=== PATIENT | female | born 1975 | race Caucasian/White ===

== ENCOUNTER 2021-12-19 11:54 | Observation (INO) ==
[2021-12-19] MEDS ORDERED: Morphine Sulfate 2 MG/ML SYRINGE IVP ONE (12:39)
[2021-12-19] MEDS ORDERED: Ondansetron 4 MG/2 ML VIAL IVP ONE (12:39)
[2021-12-19] MEDS ORDERED: 0.9 % Sodium Chloride 1,000 ML IVC ONE (13:04)
[2021-12-19 14:04] LABS: Basophils # 0.1 K/mcL (0.0-0.2); Basophils % 0.6 %; Eosinophils # 0.2 K/mcL (0.0-0.6); Eosinophils % 1.8 %; Hematocrit 42.4 % (35.3-44.9); Hemoglobin 14.2 g/dL (11.5-15.4); Immature Granulocytes % 0.2 % (0-4); Lymphocytes # 1.8 K/mcL (0.6-4.6); Lymphocytes % 20.3 %; Mean Corpuscular HGB Conc 33.5 g/dL (31.6-35.5); Mean Corpuscular Hemoglobin 29.5 pg (28.0-33.3); Mean Corpuscular Volume 88.1 fL (83.0-100.0); Mean Platelet Volume 9.7 fL (9.4-12.4); Monocytes # 0.6 K/mcL (0.0-1.3); Monocytes % 6.3 %; Neutrophils # 6.2 K/mcL (1.6-8.9); Platelet Count 338 K/mcL (140-400); Red Blood Count 4.81 M/mcL (3.82-4.97); Red Cell Distribution Width 12.3 % (11.5-14.5); Segmented Neutrophils % 70.8 %; White Blood Count 8.8 K/mcL (4.3-11.1)
[2021-12-19 14:19] LABS: Alanine Aminotransferase 11 Units/L (7-52); Albumin 4.4 g/dL (3.5-5.7); Albumin/Globulin Ratio 1.6 (1.1-2.2); Alkaline Phosphatase 61 Units/L (34-104); Aspartate Amino Transferase 11 Units/L (13-39); BUN/Creatinine Ratio 24 (6-26); Bilirubin,Direct 0.1 mg/dL (0.0-0.2); Bilirubin,Indirect 0.4 mg/dL (0.0-1.0); Bilirubin,Total 0.5 mg/dL (0.3-1.0); Blood Urea Nitrogen 27 mg/dL (6-20); Calcium 9.7 mg/dL (8.6-10.3); Carbon Dioxide 24 mEq/L (23-29); Chloride 103 mEq/L (98-107); Ethanol < 10 mg/dL (Less than 10); Globulin 2.8 g/dL (2.4-3.5); Glucose 96 mg/dL (70-105); Lipase 22 Units/L (11-82); Osmolality,Calculated 289 (280-300); Potassium 3.4 mEq/L (3.5-5.1); Sodium 137 mEq/L (136-145); Total Protein 7.2 g/dL (6.4-8.9); Troponin I < 0.03 ng/mL (< 0.04); eGFR For African Americans > 60 (> 60); eGFR For Non-African Americans 52 (> 60)
[2021-12-19] MEDS ORDERED: Ondansetron 4 MG/2 ML VIAL IVP PRN (15:56)
[2021-12-19 16:09] LABS: Amphetamine Screen,Urine Negative ng/mL (Cutoff=1000); Barbiturate Screen,Urine Negative ng/mL (Cutoff=200); Benzodiazepines Screen,Urine Negative ng/mL (Cutoff=200); Cannabinoid Screen,Urine Negative ng/mL (Cutoff = 50); Cocaine Screen,Urine Negative ng/mL (Cutoff= 300); Opiate Screen,Urine Positive ng/mL (Cutoff=300); Phencyclidine Screen,Urine Negative ng/mL (Cutoff=25)
[2021-12-19 16:32] LABS: Bilirubin,Urine Negative (Negative); Blood,Urine Negative (Negative); Clarity,Urine Clear (Clear); Color,Urine Light-Yellow (Yellow); Glucose,Urine (UA) Normal (Normal); Ketones,Urine Negative (Negative); Leukocyte Esterase,Urine Negative (Negative); Nitrite,Urine Negative (Negative); Protein,Urine Trace mg/dL (Neg-Trace); Specific Gravity,Urine 1.015 (1.010-1.025); Urobilinogen,Urine Normal (Normal)
[2021-12-19] MEDS ORDERED: Naloxone 0.4 MG/ML INJ IVP PRN (17:35)
[2021-12-19] MEDS ORDERED: Melatonin 3 MG TABLET PO PRN (17:35)
[2021-12-19] MEDS: 0.9 % Sodium Chloride 1,000 ML IVC SCH (20:47)
[2021-12-19] MEDS: Acetaminophen 325 MG TABLET PO PRN (22:29)
[2021-12-19] MEDS: Ondansetron 4 MG/2 ML VIAL IVP PRN (22:33)
[2021-12-20] MEDS ORDERED: Ketorolac 30 MG/ML VIAL IVP SCH
[2021-12-20 01:12] LABS: Basophils # 0.1 K/mcL (0.0-0.2); Basophils % 0.7 %; Eosinophils # 0.2 K/mcL (0.0-0.6); Eosinophils % 3.4 %; Immature Granulocytes % 0.1 % (0-4); Lymphocytes # 2.1 K/mcL (0.6-4.6); Mean Corpuscular HGB Conc 32.3 g/dL (31.6-35.5); Mean Corpuscular Hemoglobin 29.9 pg (28.0-33.3); Mean Corpuscular Volume 92.4 fL (83.0-100.0); Mean Platelet Volume 10.3 fL (9.4-12.4); Monocytes # 0.4 K/mcL (0.0-1.3); Neutrophils # 3.9 K/mcL (1.6-8.9); Platelet Count 196 K/mcL (140-400); Red Blood Count 4.22 M/mcL (3.82-4.97); Red Cell Distribution Width 12.7 % (11.5-14.5); Segmented Neutrophils % 57.8 %; White Blood Count 6.7 K/mcL (4.3-11.1)
[2021-12-20 01:22] LABS: Hemoglobin 12.6 g/dL (11.5-15.4)
[2021-12-20 03:34] LABS: Alanine Aminotransferase 10 Units/L (7-52); Albumin 3.6 g/dL (3.5-5.7); Albumin/Globulin Ratio 1.6 (1.1-2.2); Alkaline Phosphatase 52 Units/L (34-104); Aspartate Amino Transferase 11 Units/L (13-39); BUN/Creatinine Ratio 27 (6-26); Bilirubin,Total 0.4 mg/dL (0.3-1.0); Blood Urea Nitrogen 22 mg/dL (6-20); Calcium 8.5 mg/dL (8.6-10.3); Carbon Dioxide 20 mEq/L (23-29); Chloride 111 mEq/L (98-107); Globulin 2.3 g/dL (2.4-3.5); Glucose 80 mg/dL (70-105); Osmolality,Calculated 286 (280-300); Potassium 4.3 mEq/L (3.5-5.1); Sodium 137 mEq/L (136-145); Total Protein 5.9 g/dL (6.4-8.9); eGFR For African Americans > 60 (> 60); eGFR For Non-African Americans > 60 (> 60)
[2021-12-20] MEDS: Acetaminophen 325 MG TABLET PO PRN (04:46)
[2021-12-20] MEDS: 0.9 % Sodium Chloride 1,000 ML IVC SCH (07:49)
[2021-12-20] MEDS: *HR* OxyCODONE Immed Rel 5 MG TABLET PO PRN ×2 (12:57→19:20)
[2021-12-21] MEDS: *HR* OxyCODONE Immed Rel 5 MG TABLET PO PRN ×3 (02:17→14:47)
[2021-12-21] MEDS: Ondansetron 4 MG/2 ML VIAL IVP PRN ×2 (04:10→12:57)
[2021-12-21 05:13] LABS: Bilirubin,Urine Negative (Negative); Blood,Urine Negative (Negative); Clarity,Urine Clear (Clear); Color,Urine Yellow (Yellow); Glucose,Urine (UA) Normal (Normal); Ketones,Urine Negative (Negative); Leukocyte Esterase,Urine Negative (Negative); Nitrite,Urine Negative (Negative); Protein,Urine Negative (Neg-Trace); Urobilinogen,Urine Normal (Normal)
[2021-12-21 06:17] LABS: Basophils % 0.5 %; Eosinophils # 0.2 K/mcL (0.0-0.6); Eosinophils % 3.3 %; Hematocrit 37.3 % (35.3-44.9); Hemoglobin 12.2 g/dL (11.5-15.4); Immature Granulocytes % 0.3 % (0-4); Lymphocytes # 1.7 K/mcL (0.6-4.6); Lymphocytes % 23.4 %; Mean Corpuscular HGB Conc 32.7 g/dL (31.6-35.5); Mean Corpuscular Hemoglobin 29.5 pg (28.0-33.3); Mean Corpuscular Volume 90.3 fL (83.0-100.0); Mean Platelet Volume 9.5 fL (9.4-12.4); Monocytes # 0.3 K/mcL (0.0-1.3); Monocytes % 4.4 %; Platelet Count 265 K/mcL (140-400); Red Blood Count 4.13 M/mcL (3.82-4.97); Red Cell Distribution Width 12.3 % (11.5-14.5); Segmented Neutrophils % 68.1 %; White Blood Count 7.3 K/mcL (4.3-11.1)
[2021-12-21 06:34] LABS: Alanine Aminotransferase 10 Units/L (7-52); Albumin 3.6 g/dL (3.5-5.7); Albumin/Globulin Ratio 1.8 (1.1-2.2); Alkaline Phosphatase 53 Units/L (34-104); Aspartate Amino Transferase 12 Units/L (13-39); BUN/Creatinine Ratio 28 (6-26); Bilirubin,Total 0.4 mg/dL (0.3-1.0); Blood Urea Nitrogen 21 mg/dL (6-20); Calcium 8.7 mg/dL (8.6-10.3); Carbon Dioxide 21 mEq/L (23-29); Chloride 112 mEq/L (98-107); Glucose 93 mg/dL (70-105); Osmolality,Calculated 291 (280-300); Sodium 139 mEq/L (136-145); Total Protein 5.6 g/dL (6.4-8.9); eGFR For African Americans > 60 (> 60); eGFR For Non-African Americans > 60 (> 60)
[2021-12-21] MEDS ORDERED: Simethicone 40 MG/0.6 ML MLS IR ONE (13:47)
[2021-12-21] MEDS: Pregabalin 75 MG CAPSULE PO SCH (20:41)
[2021-12-21] MEDS: Topiramate 100 MG TABLET PO SCH (20:41)
[2021-12-21] MEDS: BuPROPion SR (12 HR) 150 MG TABLET PO SCH (20:41)
[2021-12-22 06:48] VITALS: BP 103/60; PULSE 55; O2SAT 97
[2021-12-22 08:08] VITALS: TEMP 98.3
[2021-12-22] MEDS: Pregabalin 75 MG CAPSULE PO SCH (08:33)
[2021-12-22] MEDS: Topiramate 100 MG TABLET PO SCH (08:33)
[2021-12-22] MEDS: BuPROPion SR (12 HR) 150 MG TABLET PO SCH (08:33)
[2021-12-22] MEDS: Acetaminophen 325 MG TABLET PO PRN (08:54)
[2021-12-22] MEDS ORDERED: Folic Acid 1 MG TABLET PO SCH (09:00)
[2021-12-22] MEDS ORDERED: NON-FORMULARY MEDICATION 1 EACH EACH (Omeprazole [Prilosec] 40 MG Capsule.Dr) PO SCH (09:00)
== END 2021-12-22 11:27 | disposition home or self-care (01) ==
LOC: EMEROOARM 11:54 → 2NENU 11:54 → SUATTDRO 19:42 → 2NENU 20:13
PROVIDERS: ADMIT Internal Medicine; ATTEND Internal Medicine
PROC: ENDOEBX (2021-12-21 16:25)